=== PATIENT | male | born 1970 | race Caucasian/White ===

== ENCOUNTER 2018-12-11 11:36 | Day surgery (SDC) | payer SELFPAY ==
[~2018-12-11] VITALS: Ht 185.4 cm; Wt 97.4 kg
[2018-12-11 12:22] LABS: BASO # 0.1 (0.0-0.2); BASO % 0.5 % (0.0-2.0); GRAN # 8.8 (1.4-6.5); GRAN % 74.1 % (42.2-75.2); HEMATOCRIT 50.8 % (42.0-52.0); HEMOGLOBIN 17.6 g/dl (13.5-18.0); LYMPH # 1.9 (1.2-3.4); MEAN CELL VOLUME 87 fl (80.0-100.0); MEAN CORPUSCULAR HEMOGLOBIN 30 pg (27.0-31.0); MEAN CORPUSCULAR HGB CONC 35 g/dl (33.0-37.0); MEAN PLATELET VOLUME 9.9 fl (7.4-10.4); MONO # 1.1 (0.1-0.6); PLATELET COUNT 220 K/mm3 (130-400); RED BLOOD COUNT 5.83 M/mm3 (4.20-5.60); REDCELL DISTRIBUTION WIDTH-CV 11.9 % (11.5-14.5)
[2018-12-11 12:34] LABS: ALBUMIN 3.9 gm/dL (3.5-5.0); BILIRUBIN,TOTAL 1.2 mg/dL (0.0-1.0); C-REACTIVE PROTEIN 4.1 mg/dL (0.0-0.9); CALCIUM 8.8 mg/dL (8.4-10.2); CREATININE, serum 0.59 mg/dL (0.66-1.25); POTASSIUM 4.1 mmol/L (3.4-5.0); TOTAL PROTEIN 7.4 gm/dL (6.4-8.2)
[2018-12-11] MEDS ORDERED: ENTRESTO 24 MG1 EACH PO (16:37)
[2018-12-11] MEDS ORDERED: COREG 25MG25 MG/TAB PO (16:38)
--- NOTE | 2018-12-11 16:45 | NUR ---
Transfer from ED. Alert and oriented, able to ambulate to bed . 18 gauge INT noted to left forearm. Waiting for orders from Dr. Kinney
[2018-12-11 17:12] VITALS: BP 136/93; PULSE 84; TEMP 98
--- NOTE | 2018-12-11 20:08 | NUR ---
Patient arrived to floor via wheelchair to room 356. In bed, given mouth swabs to moisten mouth. Given pain medication prior to arriving to floor. Lung sounds clear, abdominal sounds active, pulses +3. No further needs at this time.
[2018-12-11 21:00] VITALS: BP 140/95; PULSE 80; TEMP 97.8
--- NOTE | 2018-12-11 21:00 | NUR ---
Pt left for procedure.
[2018-12-11 22:25] VITALS: BP 145/91; PULSE 83
--- NOTE | 2018-12-11 22:25 | NUR ---
Pt up to floor. Helped to stand up to urinate. Now sitting in chair. Tolerating ice water and ice chips. GIven jello now. MOnitoringpost op vitals at this time. Denies pain.
[2018-12-11 22:40] VITALS: BP 137/89; PULSE 92; TEMP 98.2
--- NOTE | 2018-12-11 22:45 | NUR ---
Given sandwich box, drinking ice water. Given percocet for pain. VSS.
[2018-12-11 22:55] VITALS: BP 140/97; PULSE 80
--- NOTE | 2018-12-11 23:00 | NUR ---
VSS, patient ready to be discharged, working on paperwork, pt's friend on her way up to pick patient up.
[2018-12-11 23:10] VITALS: BP 143/96; PULSE 86
--- NOTE | 2018-12-11 23:30 | NUR ---
Patient discharged with friend to ER parking lot by this nurse. IV discontinued.
== END 2018-12-11 23:30 | disposition home or self-care (01) ==
LOC: COL.ER 11:36 → SDCO 16:39 → MEDICAL 19:42 → SDCO 23:30
PROVIDERS: Emergency Medicine
DX: L02.215 Cutaneous abscess of perineum (principal); I25.10 Atherosclerotic heart disease of native coronary artery without angina pectoris; I10 Essential (primary) hypertension; I25.2 Old myocardial infarction; Z87.891 Personal history of nicotine dependence; Z95.5 Presence of coronary angioplasty implant and graft
CPT/HCPCS: OP; J0360; J0690; J1170; J2270; J2543; J2704; J3010; J7030; Q9967